=== PATIENT | female | born 1990 | race Caucasian/White ===

== ENCOUNTER 2022-07-30 15:45 | Outpatient (OUT) | payer OTHER, SELFPAY ==
[2022-07-30 16:02] LABS: Basophils Percent Auto 0.4 % (0.2-2.0); Eosinophils Absolute Auto 0.1 10^3/uL (0.0-0.7); Eosinophils Percent Auto 1.4 % (0.9-7.0); Hematocrit 43.6 % (36.0-48.0); Hemoglobin 14.5 g/dL (12.0-16.0); Immature Granulocytes Abs Auto 0.04 10^3/uL (0.00-0.03); Immature Granulocytes Pct Auto 0.5 % (0.0-0.5); Lymphocytes Absolute Auto 2.5 10^3/uL (1.2-3.8); Mean Corpuscular HGB Conc 33.3 g/dL (29.9-35.2); Mean Corpuscular Hemoglobin 29.4 pg (26.7-34.0); Mean Corpuscular Volume 88.3 fL (81.0-99.0); Mean Platelet Volume 9.2 fL (9.5-13.5); Monocytes Absolute Auto 0.4 10^3/uL (0.3-0.8); Monocytes Percent Auto 4.7 % (1.7-12.0); Neutrophils Absolute Auto 5.3 10^3/uL (1.4-6.5); Platelet Count 297 10^3/uL (150-450); Red Blood Count 4.94 10^6/uL (4.20-5.40); Red Cell Distribution Width 12.7 % (11.0-15.0); White Blood Count 8.5 10^3/uL (4.0-11.0)
[2022-07-30 16:23] LABS: Estimated Average Glucose 103 mg/dL; Glycohemoglobin A1C 5.2 % (4.5-6.2)
[2022-07-30 16:56] LABS: Anion Gap 13.1; BUN Creatinine Ratio 10.7; Calcium 9.1 mg/dL (8.5-10.1); Carbon Dioxide 25.7 mmol/L (21.0-32.0); Chloride 101 mmol/L (98-107); Estimated GFR (African America >60 (>=60); Estimated GFR (Non-African Ame >60 (>=60); Glucose 129 mg/dL (74-106); Potassium 3.8 mmol/L (3.5-5.1); Sodium 136 mmol/L (136-145)
== END 2022-07-30 15:46 ==
LOC: LAB 15:48
PROVIDERS: PCP Family Medicine; Visit Provider Family Medicine
DX: R53.83 Other fatigue (principal); R73.01 Impaired fasting glucose
CPT/HCPCS: 36415; 80048; 83036; 84443; 85025

== ENCOUNTER 2023-07-09 04:29 | Emergency (ER) | payer SELFPAY ==
[2023-07-09 04:39] VITALS: BP 160/90; PULSE 68; TEMP 36.8; O2SAT 97; BMI 37.4
--- NOTE | 2023-07-09 05:04 | ED_ITS ---
HPI - Ear Problem General Chief complaint: Ear Stated complaint: left ear pain Time Seen by Provider: 07/09/23 04:40 Source: patient Mode of arrival: walk-in Limitations: no limitations History of Present Illness HPI Narrative: This 33-year-old female presents for evaluation of left-sided ear pain. She states that for the past several days she has had a sore throat, nasal congestion and dry cough. She has had some mild ear pain as well but this morning she woke up with severe left-sided ear pain. There has been no drainage from the ear. She has no dental pain. She has intermittently had a low-grade fever over the course of the past several days. She has not put anything in her ear. Her hearing is somewhat muffled. She denies that she has recently been swimming or in any hot tubs. She denies the possibility of . She denies any chest pain or shortness of breath. She is not having any dizziness or nausea. She has been using [id number] cough and cold medications without significant improvement. Related Data Home Medications ?Medication ?Instructions ?Recorded ?Confirmed No Known Home Medications 07/09/23 07/09/23 Allergies Allergy/AdvReac Type Severity Reaction Status Date / Time No Known Drug Allergies Allergy Verified 07/09/23 04:41 Review of Systems ROS Status of ROS 10 or more systems reviewed and unremark able except as noted in history and below Exam Narrative Exam Narrative: Vital signs and Nursing Notes reviewed: Patient is afebrile with a normal pulse, blood pressure is elevated at 160/90, she is not hypoxic with pulse ox of 97% on room air General: Nontoxic but uncomfortable appearing female, no respiratory distress HEENT: Normocephalic atraumatic, mucous membranes are moist and pink, eyes are clear, normal conjunctiva, vision is grossly intact, she has 2-3+ tonsillar hypertrophy without exudate or peritonsillar abscess. Right tympanic membrane is normal in appearance and the left tympanic membrane is red, bulging and has a visible effusion behind the tympanic membrane. It looks like the patient has irritated or damaged the tympanic membrane with a Q-tip or another instrument but she denies that she has put anything into her ear. Neck: Supple, no meningeal signs, no anterior or posterior cervical lymphadenopathy Chest: Lungs are clear to auscultation with good air entry, there is no wheezing rhonchi or rales appreciated no accessory muscle use, patient is speaking in complete sentences-no chest wall tenderness to palpation CVS: Regular rate and rhythm S1-S2, no murmurs rubs or gallops, pulses are brisk and equal bilaterallyd Extremities: Moving all extremities, no lower extremity tenderness or swelling noted, negative Homans' sign, pulses are brisk and equal bilaterally Skin: Normal in appearance without rash,pallor, petechiae or purpura Neuro: No focal deficits Constitutional Vital Signs, click to edit/add: Last Vital Signs Temp 98.2 F 07/09/23 04:39 Pulse 68 07/09/23 04:39 Resp 18 07/09/23 04:39 BP 160/90 H 07/09/23 04:39 Pulse Ox 97 07/09/23 04:39 O2 Del Method Room Air 07/09/23 04:39 Course Vital Signs Vital signs: Vital Signs Temperature 98.2 F 07/09/23 04:39 Pulse Rate 68 07/09/23 04:39 Respiratory Rate 18 07/09/23 04:39 Blood Pressure 160/90 H 07/09/23 04:39 Pulse Oximetry 97 07/09/23 04:39 Oxygen Delivery Method Room Air 07/09/23 04:39 Temperature 98.2 F 07/09/23 04:39 Pulse Rate 68 07/09/23 04:39 Respiratory Rate 18 07/09/23 04:39 Blood Pressure 160/90 H 07/09/23 04:39 Pulse Oximetry 97 07/09/23 04:39 Oxygen Delivery Method Room Air 07/09/23 04:39 Medical Decision Making [facility] Narrative Medical decision making narrative: This otherwise healthy 33-year-old female presents for evaluation of left-sided ear pain after having a sore throat, runny nose, nasal congestion and dry cough for the past several days with a low-grade fever. Her left tympanic membrane is erythematous and bulging and appears as if she has instruments of the ear with a Q-tip or other foreign body but she denies this is the case. 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 She needs to be medicated with something where she can remain alert and take her exams. She was given ibuprofen and proparacaine ophthalmic solution was instilled into the left ear to attempt to anesthetize the tympanic membrane for comfort. She was also medicated with amoxicillin in the emergency department. She will be discharged home with amoxicillin and 2 Hannacroix to take as needed after her exams. Discharge Plan Discharge Stand Alone Forms: Portal Instructions Chief Complaint: Ear Clinical Impression: Otitis media Patient Disposition: Home, Self-Care Time of Disposition Decision: 05:09 Condition: Good Prescriptions / Home Meds: No Action No Known Home Medications Print Language: [place]an Instructions: How to Use Ear Drops (ED), Ear Infection (ED) Referrals: Debbie Chambers MD [Primary Care Provider] - 1 week
[2023-07-09] MEDS: AMOXICILLIN 500 MG CAPSULE PO (05:19)
[2023-07-09] MEDS: IBUPROFEN 600 MG TABLET PO (05:19)
[2023-07-09] MEDS: TETRACAINE HCL 0.5% OP SOL 80 DROP/4 ML BOTTLE OP (05:20)
[2023-07-09] MEDS: HYDROCODONE/ACET 5-325 MG TABLET 2 TAB PO (05:39)
== END 2023-07-09 05:43 | disposition home or self-care (01) ==
PROVIDERS: Emergency Provider Emergency Medicine; PCP Family Medicine
DX: H66.92 Otitis media, unspecified, left ear (principal)
CPT/HCPCS: 99284